=== PATIENT | female | born 1960 | race Caucasian/White ===

== ENCOUNTER 2016-08-05 01:07 | Day surgery (SDC) | payer OTHER ==
[~2016-08-05 01:07] MED LIST: FLUT9.9S NS; IBUP400T22 PO; IMI100 PO; MULT-1080 PO; OMEP20CA11 PO; PREC VG
== END 2016-08-05 23:59 | disposition home or self-care (01) ==
LOC: END 01:07
PROVIDERS: ATTEND Internal Medicine Gastroenterology
DX: K21.9 Gastro-esophageal reflux disease without esophagitis (principal); Z53.09 Procedure and treatment not carried out because of other contraindication

== ENCOUNTER 2016-09-09 07:25 | Day surgery (SDC) | payer OTHER ==
[2016-09-09] MEDS ORDERED: Lidocaine Topical 2% 30 mL Jelly ONE ×2 (08:01→08:36)
== END 2016-09-09 23:59 | disposition home or self-care (01) ==
LOC: END 07:25
PROVIDERS: ATTEND Internal Medicine Gastroenterology
DX: K21.9 Gastro-esophageal reflux disease without esophagitis (principal)